=== PATIENT | male | born 1955 | race Caucasian/White ===

== ENCOUNTER 2016-08-13 02:05 | Inpatient (IN) | payer OTHER ==
[2016-08-13] VITALS (7 sets, daily range): BP systolic 138–181; BP diastolic 68–94
[~2016-08-13] VITALS: Ht 172.7 cm; Wt 79.1 kg
[~2016-08-13 02:05] MED LIST: ATIVAN0.5 M1 GT; Ativan PO; CALCITRIOL0.25 MCG PO; CEFTIN500 MG PO; COMPAZINE10 MG PO; Flomax PO; HYDROCODONE BI473 ML PO; LEVOTHYROXINE100 MCG PO; LOSARTAN POTASS25 MG PO; MIRALAX17 GM PO; NORCO 5/3251 TABLET PO; PREDNISONE10 MG PO; Prilosec PO; ROXICODONE5 MG/5 ML PO; VENTOLIN HFA18 GM IH; VITAMIN D31000 UNIT PO; Zofran PO; [UNRECOGNIZED DRUG - REMARK]; [UNRECOGNIZED DRUG - REMARK]; [UNRECOGNIZED DRUG - REMARK]
[2016-08-13 02:38] LABS: EOSINOPHIL (%) 0.5 % (0-5); EOSINOPHIL COUNT 0.1 K/uL (0-0.3); HEMATOCRIT 38.3 % (38.0-50.0); IMMATURE GRANULOCYTE (%) 0.5 % (0.0-0.7); IMMATURE GRANULOCYTE COUNT 0.1 K/uL; INSTRUMENT ABS NEUTROPHIL CT 7.5 K/uL; LYMPHOCYTE COUNT 1.1 K/uL (1.0-2.8); MCH 29.7 PG (29.0-34.0); MCHC 33.7 G/DL (30.0-36.0); MCV 88.2 FL (86-99); MEAN PLAT.VOLUME 9.2 uM^3 (9.0-12.4); MONOCYTE (%) 6.5 % (3-12); MONOCYTE COUNT 0.6 K/uL (0-0.8); NEUTROPHIL (%) 80.2 % (45-76); NEUTROPHIL COUNT 7.5 K/uL (1.8-6.4); PLATELET COUNT 400 K/uL (156-360); RBC DIS.WIDTH-CV 13.4 % (11.8-14.6); RBC DIS.WIDTH-SD 43.7 % (39-53); RED BLOOD COUNT 4.34 M/uL (4.00-5.50); WHITE BLOOD COUNT 9.4 K/uL (4.1-10.2)
[2016-08-13 02:47] LABS: INTER. NORMALIZED RATIO 1.1; PROTHROMBIN TIME 11.5 (9.2-11.2); PTT 24.3 (25-32)
[2016-08-13 02:49] LABS: CHLORIDE 106 mEq/L (99-109); POTASSIUM 3.8 mEq/L (3.7-5.4); SODIUM 138 mEq/L (136-147)
[2016-08-13 02:51] LABS: GLUCOSE 138 mg/dL (70-99)
[2016-08-13 02:52] LABS: ANION GAP 11 MEQ/L (2-14)
[2016-08-13 02:55] LABS: GFR ESTIMATE (CALCULATED) 55 mL/min/
[2016-08-13 02:56] LABS: UREA NITROGEN (BUN) 22 mg/dL (9-23)
[2016-08-13 03:00] LABS: TROP-I INTERPRETATION NEGATIVE; TROPONIN-I < 0.01 ng/mL (0.0-0.30)
[2016-08-13 03:59] LABS: HDL CHOLESTEROL 44 MG/DL (Desirable>=40); LDL CHOLESTEROL 94 mg/dL (Desirable<100); NON-HDL CHOLESTEROL 111 mg/dL (Desirable<160); TOTAL CHOLESTEROL 155 mg/dL (Desirable<200); TRIGLYCERIDES 83 MG/DL (Normal: <150)
[2016-08-13] MEDS ORDERED: CLARITIN10 MG PO (06:27)
[2016-08-13] MEDS ORDERED: ADVAIR 250/501 DISK IH (06:28)
[2016-08-13 07:13] LABS: Estimated Average Glucose 126 mg/dL (70-123)
[2016-08-13 07:52] LABS: ADD MIUA? NO; BILIRUBIN NEGATIVE; BLOOD NEGATIVE; COLOR COLORLESS ((YELLOW)); GLUCOSE (STRIP) NEGATIVE; KETONES NEGATIVE; LEUKOCYTES NEGATIVE; NITRITE NEGATIVE; PROTEIN (STRIP) NEGATIVE; SPECIFIC GRAVITY 1.008 (1.000-1.030); UCUL ADDED? NO; UROBILINOGEN 0.2 MG/DL (0.2-1.0)
[2016-08-13] MEDS ORDERED: SF56 GM DT (08:32)
[2016-08-13] MEDS ORDERED: FLONASE16 G1 BOTH NARES (08:33)
[2016-08-13 10:31] LABS: METH RESISTANT S AUREUS PCR NEGATIVE (NEGATIVE)
[2016-08-13 10:49] LABS: PROBE CHECK PASS; SPECIMEN PROCESSING CONTROL PASS
[2016-08-13 13:59] LABS: TROP-I INTERPRETATION NEGATIVE; TROPONIN-I < 0.01 ng/mL (0.0-0.30)
[2016-08-13 19:12] LABS: TROP-I INTERPRETATION NEGATIVE; TROPONIN-I < 0.01 ng/mL (0.0-0.30)
[2016-08-14 01:23] LABS: TROP-I INTERPRETATION NEGATIVE; TROPONIN-I < 0.01 ng/mL (0.0-0.30)
[2016-08-14 03:57] VITALS: BP 137/89
[2016-08-14 06:23] LABS: EOSINOPHIL (%) 0.1 % (0-5); HEMATOCRIT 41.2 % (38.0-50.0); IMMATURE GRANULOCYTE (%) 0.6 % (0.0-0.7); IMMATURE GRANULOCYTE COUNT 0.1 K/uL; LYMPHOCYTE COUNT 0.8 K/uL (1.0-2.8); MCH 30.4 PG (29.0-34.0); MCHC 34.5 G/DL (30.0-36.0); MCV 88.2 FL (86-99); MEAN PLAT.VOLUME 9.4 uM^3 (9.0-12.4); MONOCYTE (%) 4.1 % (3-12); MONOCYTE COUNT 0.6 K/uL (0-0.8); NEUTROPHIL (%) 90.3 % (45-76); PLATELET COUNT 414 K/uL (156-360); RBC DIS.WIDTH-CV 13.6 % (11.8-14.6); RED BLOOD COUNT 4.67 M/uL (4.00-5.50); WHITE BLOOD COUNT 15.5 K/uL (4.1-10.2)
[2016-08-14 06:43] LABS: ALKALINE PHOSPHATASE 60 IU/L (3-129); ANION GAP 10 MEQ/L (2-14); CHLORIDE 94 MEQ/L (99-109); DIRECT BILIRUBIN 0.2 mg/dL (0.0-0.3); GFR ESTIMATE (CALCULATED) > 59 mL/min/; GLUCOSE 116 mg/dL (70-99); POTASSIUM 4.2 MEQ/L (3.7-5.4); SAMPLE HEMOLYSIS CHECK 0; SAMPLE ICTERIC CHECK 0; SAMPLE LIPEMIA CHECK 0; TOTAL BILIRUBIN 0.8 MG/DL (0.0-1.0); UREA NITROGEN (BUN) 22 mg/dL (9-23)
[2016-08-14 06:46] LABS: SODIUM 129 MEQ/L (136-147)
[2016-08-14 07:41] VITALS: BP 125/78
[2016-08-14 11:27] LABS: POINT-OF-CARE METER ID UU14174225
[2016-08-14 12:05] VITALS: BP 127/74
[2016-08-14 15:22] LABS: HEMATOCRIT 40.9 % (38.0-50.0); MCH 30.7 PG (29.0-34.0); MCHC 34.7 G/DL (30.0-36.0); MCV 88.5 FL (86-99); MEAN PLAT.VOLUME 9.2 uM^3 (9.0-12.4); PLATELET COUNT 381 K/uL (156-360); RBC DIS.WIDTH-CV 13.7 % (11.8-14.6); RBC DIS.WIDTH-SD 44.1 % (39-53); RED BLOOD COUNT 4.62 M/uL (4.00-5.50); WHITE BLOOD COUNT 14.4 K/uL (4.1-10.2)
[2016-08-14 15:50] LABS: ANION GAP 8 MEQ/L (2-14); CHLORIDE 93 MEQ/L (99-109); GFR ESTIMATE (CALCULATED) > 59 mL/min/; GLUCOSE 108 mg/dL (70-99); POTASSIUM 3.9 MEQ/L (3.7-5.4); SAMPLE HEMOLYSIS CHECK 0; SAMPLE ICTERIC CHECK 0; SAMPLE LIPEMIA CHECK 0; SODIUM 128 MEQ/L (136-147); UREA NITROGEN (BUN) 22 mg/dL (9-23)
[2016-08-14 16:31] VITALS: BP 125/71
[2016-08-14 16:58] LABS: POINT-OF-CARE METER ID UU14174225
[2016-08-14 20:03] VITALS: BP 170/96
[2016-08-14 23:48] VITALS: BP 127/75
[2016-08-15 03:55] VITALS: BP 121/69
[2016-08-15 05:30] LABS: HEMATOCRIT 43.2 % (38.0-50.0); MCH 29.7 PG (29.0-34.0); MCHC 33.8 G/DL (30.0-36.0); MCV 87.8 FL (86-99); MEAN PLAT.VOLUME 9.1 uM^3 (9.0-12.4); PLATELET COUNT 370 K/uL (156-360); RBC DIS.WIDTH-CV 13.4 % (11.8-14.6); RBC DIS.WIDTH-SD 43.3 % (39-53); RED BLOOD COUNT 4.92 M/uL (4.00-5.50); WHITE BLOOD COUNT 13.6 K/uL (4.1-10.2)
[2016-08-15 05:59] LABS: ANION GAP 10 MEQ/L (2-14); CHLORIDE 96 MEQ/L (99-109); GFR ESTIMATE (CALCULATED) > 59 mL/min/; GLUCOSE 99 mg/dL (70-99); POTASSIUM 4.2 MEQ/L (3.7-5.4); SAMPLE HEMOLYSIS CHECK 0; SAMPLE ICTERIC CHECK 0; SAMPLE LIPEMIA CHECK 0; SODIUM 131 MEQ/L (136-147); UREA NITROGEN (BUN) 21 mg/dL (9-23)
[2016-08-15 07:55] VITALS: BP 125/72
[2016-08-15 12:07] VITALS: BP 145/94
[2016-08-15 15:35] VITALS: BP 150/96
[2016-08-15 19:42] VITALS: BP 134/87
[2016-08-15 23:59] VITALS: BP 130/86
[2016-08-16 03:30] VITALS: BP 133/94
[2016-08-16 06:00] LABS: HEMATOCRIT 42.2 % (38.0-50.0); MCH 30.1 PG (29.0-34.0); MCHC 34.4 G/DL (30.0-36.0); MCV 87.6 FL (86-99); MEAN PLAT.VOLUME 9.5 uM^3 (9.0-12.4); PLATELET COUNT 350 K/uL (156-360); RBC DIS.WIDTH-CV 13.6 % (11.8-14.6); RBC DIS.WIDTH-SD 43.6 % (39-53); RED BLOOD COUNT 4.82 M/uL (4.00-5.50)
[2016-08-16 06:28] LABS: ANION GAP 10 MEQ/L (2-14); CHLORIDE 91 MEQ/L (99-109); GFR ESTIMATE (CALCULATED) > 59 mL/min/; GLUCOSE 110 mg/dL (70-99); POTASSIUM 4.3 MEQ/L (3.7-5.4); SAMPLE HEMOLYSIS CHECK 0; SAMPLE ICTERIC CHECK 0; SAMPLE LIPEMIA CHECK 0; SODIUM 127 MEQ/L (136-147); UREA NITROGEN (BUN) 25 mg/dL (9-23)
[2016-08-16 07:47] LABS: POINT-OF-CARE METER ID UU14174225
[2016-08-16 08:00] VITALS: BP 149/97
[2016-08-16 10:14] LABS: URIC ACID 5.8 mg/dL (3.1-9.2)
[2016-08-16 12:56] VITALS: BP 147/86
[2016-08-16 15:55] VITALS: BP 150/91
[2016-08-16 19:34] VITALS: BP 124/71
[2016-08-17] VITALS: BP 153/89
[2016-08-17 03:38] VITALS: BP 164/80
[2016-08-17 06:30] LABS: HEMATOCRIT 45.5 % (38.0-50.0); MCH 30.3 PG (29.0-34.0); MCHC 34.5 G/DL (30.0-36.0); MCV 87.7 FL (86-99); MEAN PLAT.VOLUME 9.9 uM^3 (9.0-12.4); PLATELET COUNT 372 K/uL (156-360); RBC DIS.WIDTH-CV 13.5 % (11.8-14.6); RED BLOOD COUNT 5.19 M/uL (4.00-5.50); WHITE BLOOD COUNT 15.7 K/uL (4.1-10.2)
[2016-08-17 06:58] LABS: ANION GAP 11 MEQ/L (2-14); CHLORIDE 93 MEQ/L (99-109); GFR ESTIMATE (CALCULATED) 55 mL/min/; GLUCOSE 92 mg/dL (70-99); POTASSIUM 4.2 MEQ/L (3.7-5.4); SAMPLE HEMOLYSIS CHECK 0; SAMPLE ICTERIC CHECK 0; SAMPLE LIPEMIA CHECK 0; SODIUM 131 MEQ/L (136-147); UREA NITROGEN (BUN) 25 mg/dL (9-23)
[2016-08-17 07:49] VITALS: BP 111/65
[2016-08-17 11:35] VITALS: BP 101/55
[2016-08-17 13:34] LABS: ANION GAP 11 MEQ/L (2-14); CHLORIDE 95 MEQ/L (99-109); GFR ESTIMATE (CALCULATED) 51 mL/min/; GLUCOSE 125 mg/dL (70-99); POTASSIUM 4.6 MEQ/L (3.7-5.4); SAMPLE HEMOLYSIS CHECK 0; SAMPLE ICTERIC CHECK 0; SAMPLE LIPEMIA CHECK 0; SODIUM 130 MEQ/L (136-147); UREA NITROGEN (BUN) 26 mg/dL (9-23)
[2016-08-17 16:12] VITALS: BP 107/58
[2016-08-17 16:27] VITALS: BP 128/75
[2016-08-17 18:01] LABS: UR CREATININE CONCENTRATION 179.4 MG/DL
[2016-08-18 00:07] VITALS: BP 111/60
[2016-08-18 04:19] VITALS: BP 150/76
[2016-08-18 07:04] LABS: HEMATOCRIT 42.6 % (38.0-50.0); MCH 30.5 PG (29.0-34.0); MCHC 34.3 G/DL (30.0-36.0); MCV 89.1 FL (86-99); MEAN PLAT.VOLUME 9.5 uM^3 (9.0-12.4); PLATELET COUNT 333 K/uL (156-360); RBC DIS.WIDTH-SD 45.4 % (39-53); RED BLOOD COUNT 4.78 M/uL (4.00-5.50); WHITE BLOOD COUNT 10.5 K/uL (4.1-10.2)
[2016-08-18 07:30] LABS: ANION GAP 7 MEQ/L (2-14); CHLORIDE 102 MEQ/L (99-109); GFR ESTIMATE (CALCULATED) > 59 mL/min/; GLUCOSE 110 mg/dL (70-99); POTASSIUM 4.7 MEQ/L (3.7-5.4); SAMPLE HEMOLYSIS CHECK 0; SAMPLE ICTERIC CHECK 0; SAMPLE LIPEMIA CHECK 0; SODIUM 136 MEQ/L (136-147); UREA NITROGEN (BUN) 22 mg/dL (9-23)
[2016-08-18 08:24] LABS: ANION GAP 8 MEQ/L (2-14); CHLORIDE 102 MEQ/L (99-109); GFR ESTIMATE (CALCULATED) > 59 mL/min/; GLUCOSE 111 mg/dL (70-99); POTASSIUM 4.6 MEQ/L (3.7-5.4); SAMPLE HEMOLYSIS CHECK 0; SAMPLE ICTERIC CHECK 0; SAMPLE LIPEMIA CHECK 0; SODIUM 137 MEQ/L (136-147); UREA NITROGEN (BUN) 22 mg/dL (9-23); URIC ACID 5.8 mg/dL (3.1-9.2)
[2016-08-18 08:42] VITALS: BP 154/93
[2016-08-18] MEDS ORDERED: ATORVASTATIN CA40 MG PO (09:54)
[2016-08-18] MEDS ORDERED: ASPIR-LOW81 MG PO (09:54)
== END 2016-08-18 14:00 | DRG 65 ==
LOC: EME → EDBD 02:05 → 5SOUTH 06:10 → EDOF 06:10 → 4WEST 08:51 → 5SOUTH 19:49
PROVIDERS: Emergency Medicine; Hospitalist; Internal Medicine Nephrology
DX: I63.9 Cerebral infarction, unspecified (principal); J32.0 Chronic maxillary sinusitis; R00.1 Bradycardia, unspecified; I12.9 Hypertensive chronic kidney disease with stage 1 through stage 4 chronic kidney disease, or unspecified chronic kidney disease; E87.1 Hypo-osmolality and hyponatremia; I07.1 Rheumatic tricuspid insufficiency; J45.20 Mild intermittent asthma, uncomplicated; N18.3 Chronic kidney disease, stage 3 (moderate); E03.9 Hypothyroidism, unspecified; R42 Dizziness and giddiness; R11.2 Nausea with vomiting, unspecified; H53.2 Diplopia; J32.2 Chronic ethmoidal sinusitis; R13.10 Dysphagia, unspecified; E21.3 Hyperparathyroidism, unspecified; K21.9 Gastro-esophageal reflux disease without esophagitis; Z85.819 Personal history of malignant neoplasm of unspecified site of lip, oral cavity, and pharynx; Z86.73 Personal history of transient ischemic attack (TIA), and cerebral infarction without residual deficits
CPT/HCPCS: 70450; 70551; 71010; 74230; 80048; 80048 91; 80061; 80069; 80076; 81003; 82533 91; 82570; 82948; 83036; 83880; 83930; 83935; 84300; 84443; 84484; 84550; 85025; 85027; 85610; 85730; 87641; 92610 GN; 92611 GN; 93005; 93306; 94640; 94640 76; 99202; 99281; 99284; J1650; J2060; J2405; J7030; Q0161; Q0169

== ENCOUNTER 2016-08-18 12:40 | Inpatient (IN) | payer OTHER ==
[~2016-08-18] VITALS: Ht 172.7 cm; Wt 79.0 kg
[~2016-08-18 12:40] MED LIST changes: +ADVAIR 250/501 DISK IH; +ASPIR-LOW81 MG PO; +ATORVASTATIN CA40 MG PO; +CLARITIN10 MG PO; +FLONASE16 G1 BOTH NARES; +SF56 GM DT
[2016-08-18 14:00] VITALS: BP 153/85
[2016-08-19] VITALS: BP 145/92
[2016-08-19 05:09] VITALS: BP 153/91
[2016-08-19 15:55] VITALS: BP 176/96
[2016-08-19 18:00] VITALS: BP 133/85
[2016-08-20 06:01] VITALS: BP 142/86
[2016-08-20 13:21] VITALS: BP 129/79
[2016-08-20 15:35] VITALS: BP 108/67
[2016-08-21 05:15] VITALS: BP 160/86
[2016-08-21 16:16] VITALS: BP 139/80
[2016-08-22 05:11] VITALS: BP 158/82
[2016-08-22 07:40] LABS: ANION GAP 8 MEQ/L (2-14); CHLORIDE 100 MEQ/L (99-109); GFR ESTIMATE (CALCULATED) > 59 mL/min/; GLUCOSE 97 mg/dL (70-99); POTASSIUM 4.7 MEQ/L (3.7-5.4); SAMPLE HEMOLYSIS CHECK 0; SAMPLE ICTERIC CHECK 0; SAMPLE LIPEMIA CHECK 0; SODIUM 137 MEQ/L (136-147); UREA NITROGEN (BUN) 22 mg/dL (9-23)
[2016-08-22 14:29] VITALS: BP 140/85
[2016-08-22 14:32] VITALS: BP 128/70
[2016-08-22 16:15] VITALS: BP 122/77
[2016-08-23 05:22] VITALS: BP 120/80
[2016-08-23 15:47] VITALS: BP 150/72
[2016-08-23 17:05] VITALS: BP 138/80
[2016-08-23 17:18] LABS: POINT-OF-CARE METER ID UU13113720
[2016-08-24 05:36] VITALS: BP 131/76
[2016-08-24 06:05] LABS: MCH 30.2 PG (29.0-34.0); MCHC 33.4 G/DL (30.0-36.0); MCV 90.5 FL (86-99); MEAN PLAT.VOLUME 9.1 uM^3 (9.0-12.4); PLATELET COUNT 321 K/uL (156-360); RBC DIS.WIDTH-CV 13.8 % (11.8-14.6); RED BLOOD COUNT 4.86 M/uL (4.00-5.50); WHITE BLOOD COUNT 11.2 K/uL (4.1-10.2)
[2016-08-24 07:04] LABS: ALKALINE PHOSPHATASE 67 IU/L (3-129); ANION GAP 9 MEQ/L (2-14); CHLORIDE 102 MEQ/L (99-109); GFR ESTIMATE (CALCULATED) 55 mL/min/; GLUCOSE 100 mg/dL (70-99); POTASSIUM 4.6 MEQ/L (3.7-5.4); SAMPLE HEMOLYSIS CHECK 0; SAMPLE ICTERIC CHECK 0; SAMPLE LIPEMIA CHECK 0; SODIUM 138 MEQ/L (136-147); TOTAL BILIRUBIN 0.4 MG/DL (0.0-1.0); UREA NITROGEN (BUN) 27 mg/dL (9-23)
[2016-08-24 15:19] VITALS: BP 132/88
[2016-08-24 19:40] LABS: ADD MIUA? NO; BILIRUBIN NEGATIVE; BLOOD NEGATIVE; COLOR YELLOW ((YELLOW)); GLUCOSE (STRIP) NEGATIVE; KETONES NEGATIVE; LEUKOCYTES NEGATIVE; NITRITE NEGATIVE; PROTEIN (STRIP) NEGATIVE; SPECIFIC GRAVITY 1.015 (1.000-1.030); UROBILINOGEN 0.2 MG/DL (0.2-1.0)
[2016-08-25 05:00] VITALS: BP 155/81
[2016-08-25 08:20] VITALS: BP 92/52
[2016-08-25 08:25] VITALS: BP 87/54
[2016-08-25 08:40] VITALS: BP 129/68
[2016-08-25 09:24] LABS: CHLORIDE 102 mEq/L (99-109); POTASSIUM 4.9 mEq/L (3.7-5.4); SODIUM 137 mEq/L (136-147)
[2016-08-25 09:26] LABS: GLUCOSE 143 mg/dL (70-99)
[2016-08-25 09:27] LABS: ANION GAP 11 MEQ/L (2-14)
[2016-08-25 09:30] LABS: GFR ESTIMATE (CALCULATED) 55 mL/min/
[2016-08-25 09:31] LABS: UREA NITROGEN (BUN) 32 mg/dL (9-23)
[2016-08-25 09:36] LABS: TROP-I INTERPRETATION NEGATIVE; TROPONIN-I < 0.01 ng/mL (0.0-0.30)
[2016-08-25 10:14] LABS: BASOPHIL COUNT 0.1 K/uL (0-0.1); EOSINOPHIL (%) 0.8 % (0-5); EOSINOPHIL COUNT 0.2 K/uL (0-0.3); HEMATOCRIT 44.1 % (38.0-50.0); IMMATURE GRANULOCYTE (%) 0.6 % (0.0-0.7); IMMATURE GRANULOCYTE COUNT 0.2 K/uL; INSTRUMENT ABS NEUTROPHIL CT 23.7 K/uL; LYMPHOCYTE COUNT 0.7 K/uL (1.0-2.8); MCH 29.6 PG (29.0-34.0); MCHC 33.1 G/DL (30.0-36.0); MCV 89.3 FL (86-99); MEAN PLAT.VOLUME 9.8 uM^3 (9.0-12.4); MONOCYTE COUNT 1.3 K/uL (0-0.8); NEUTROPHIL (%) 90.4 % (45-76); NEUTROPHIL COUNT 23.7 K/uL (1.8-6.4); PLATELET COUNT 368 K/uL (156-360); RBC DIS.WIDTH-SD 45.5 % (39-53); RED BLOOD COUNT 4.94 M/uL (4.00-5.50); WHITE BLOOD COUNT 26.3 K/uL (4.1-10.2)
[2016-08-25 12:20] VITALS: BP 97/57
[2016-08-25 12:34] VITALS: BP 97/57
[2016-08-25 13:35] LABS: ALKALINE PHOSPHATASE 61 IU/L (3-129); ANION GAP 7 MEQ/L (2-14); CHLORIDE 101 MEQ/L (99-109); GFR ESTIMATE (CALCULATED) 51 mL/min/; GLUCOSE 195 mg/dL (70-99); POTASSIUM 4.4 MEQ/L (3.7-5.4); SAMPLE HEMOLYSIS CHECK 0; SAMPLE ICTERIC CHECK 0; SAMPLE LIPEMIA CHECK 0; SODIUM 136 MEQ/L (136-147); TOTAL BILIRUBIN 0.4 MG/DL (0.0-1.0); UREA NITROGEN (BUN) 30 mg/dL (9-23)
== END 2016-08-25 14:52 | DRG 56 ==
LOC: 3WEST 12:40
PROVIDERS: Hospitalist; Physical Medicine & Rehabilitation Pain Medicine; Psychiatry & Neurology Neurology
PROC: F07M0ZZ Range of Motion and Joint Mobility Treatment of Musculoskeletal System - Whole Body (ICD-10-PCS; principal; 2016-08-18)
DX: I69.393 Ataxia following cerebral infarction (principal); I69.351 Hemiplegia and hemiparesis following cerebral infarction affecting right dominant side; I69.398 Other sequelae of cerebral infarction; H53.2 Diplopia; R13.10 Dysphagia, unspecified; A41.9 Sepsis, unspecified organism; R65.20 Severe sepsis without septic shock; J18.9 Pneumonia, unspecified organism; Y95 Nosocomial condition; I95.9 Hypotension, unspecified; N17.9 Acute kidney failure, unspecified; R39.15 Urgency of urination; E87.1 Hypo-osmolality and hyponatremia; I12.9 Hypertensive chronic kidney disease with stage 1 through stage 4 chronic kidney disease, or unspecified chronic kidney disease; N18.3 Chronic kidney disease, stage 3 (moderate); J45.909 Unspecified asthma, uncomplicated; E55.9 Vitamin D deficiency, unspecified; E03.9 Hypothyroidism, unspecified; R06.6 Hiccough; Z85.819 Personal history of malignant neoplasm of unspecified site of lip, oral cavity, and pharynx; Z87.891 Personal history of nicotine dependence; Z92.3 Personal history of irradiation
CPT/HCPCS: 70450; 71010; 80048; 80053; 81003; 82948; 83605; 84484; 85025; 85027; 87040; 87086; 93005; 94640; 94640 76; 97110 GO; 97530 GP; J0456; J1650; J3370; J7030; Q0161

== ENCOUNTER 2016-08-25 12:48 | Inpatient (IN) | payer OTHER ==
[~2016-08-25] VITALS: Ht 172.7 cm; Wt 81.2 kg
[2016-08-25 15:10] VITALS: BP 121/66
[2016-08-25 16:39] LABS: TROP-I INTERPRETATION NEGATIVE; TROPONIN-I 0.01 ng/mL (0.0-0.30)
[2016-08-25 17:11] LABS: ADD MIUA? NO; BILIRUBIN NEGATIVE; BLOOD NEGATIVE; COLOR STRAW ((YELLOW)); GLUCOSE (STRIP) NEGATIVE; KETONES NEGATIVE; LEUKOCYTES NEGATIVE; NITRITE NEGATIVE; PROTEIN (STRIP) NEGATIVE; SPECIFIC GRAVITY 1.006 (1.000-1.030); UCUL ADDED? NO; UROBILINOGEN 0.2 MG/DL (0.2-1.0)
[2016-08-25 20:34] VITALS: BP 128/61
[2016-08-25 21:19] LABS: TROP-I INTERPRETATION NEGATIVE; TROPONIN-I 0.01 ng/mL (0.0-0.30)
[2016-08-25 23:42] VITALS: BP 156/83
[2016-08-26] VITALS (7 sets, daily range): BP systolic 143–170; BP diastolic 77–100
[2016-08-26 05:37] LABS: BASOPHIL COUNT 0.1 K/uL (0-0.1); EOSINOPHIL (%) 3.9 % (0-5); EOSINOPHIL COUNT 0.6 K/uL (0-0.3); HEMATOCRIT 36.8 % (38.0-50.0); IMMATURE GRANULOCYTE (%) 0.7 % (0.0-0.7); IMMATURE GRANULOCYTE COUNT 0.1 K/uL; INSTRUMENT ABS NEUTROPHIL CT 13.1 K/uL; MCH 29.6 PG (29.0-34.0); MCHC 32.6 G/DL (30.0-36.0); MCV 90.9 FL (86-99); MEAN PLAT.VOLUME 9.5 uM^3 (9.0-12.4); MONOCYTE (%) 4.9 % (3-12); MONOCYTE COUNT 0.8 K/uL (0-0.8); NEUTROPHIL COUNT 13.1 K/uL (1.8-6.4); PLATELET COUNT 285 K/uL (156-360); RBC DIS.WIDTH-CV 14.1 % (11.8-14.6); RBC DIS.WIDTH-SD 47.2 % (39-53); RED BLOOD COUNT 4.05 M/uL (4.00-5.50); WHITE BLOOD COUNT 15.7 K/uL (4.1-10.2)
[2016-08-26 06:01] LABS: ALKALINE PHOSPHATASE 58 IU/L (3-129); ANION GAP 9 MEQ/L (2-14); CHLORIDE 106 MEQ/L (99-109); GFR ESTIMATE (CALCULATED) > 59 mL/min/; POTASSIUM 4.2 MEQ/L (3.7-5.4); SAMPLE HEMOLYSIS CHECK 0; SAMPLE ICTERIC CHECK 0; SAMPLE LIPEMIA CHECK 0; SODIUM 139 MEQ/L (136-147); UREA NITROGEN (BUN) 20 mg/dL (9-23)
[2016-08-26 06:03] LABS: GLUCOSE 105 mg/dL (70-99); TOTAL BILIRUBIN 0.5 MG/DL (0.0-1.0)
[2016-08-26 08:16] LABS: INTERNAL CONTROL VALID? YES
[2016-08-27 03:32] VITALS: BP 130/70
[2016-08-27 06:52] LABS: HEMATOCRIT 39.3 % (38.0-50.0); MCH 29.7 PG (29.0-34.0); MCHC 32.8 G/DL (30.0-36.0); MCV 90.3 FL (86-99); MEAN PLAT.VOLUME 9.3 uM^3 (9.0-12.4); PLATELET COUNT 295 K/uL (156-360); RBC DIS.WIDTH-SD 46.3 % (39-53); RED BLOOD COUNT 4.35 M/uL (4.00-5.50); WHITE BLOOD COUNT 10.2 K/uL (4.1-10.2)
[2016-08-27 07:22] LABS: ANION GAP 9 MEQ/L (2-14); CHLORIDE 103 MEQ/L (99-109); GFR ESTIMATE (CALCULATED) 55 mL/min/; GLUCOSE 91 mg/dL (70-99); POTASSIUM 4.5 MEQ/L (3.7-5.4); SAMPLE HEMOLYSIS CHECK 0; SAMPLE ICTERIC CHECK 0; SAMPLE LIPEMIA CHECK 0; SODIUM 139 MEQ/L (136-147); UREA NITROGEN (BUN) 19 mg/dL (9-23)
[2016-08-27 08:10] VITALS: BP 133/81
[2016-08-27 12:23] VITALS: BP 126/78
[2016-08-27 18:10] VITALS: BP 114/82
[2016-08-27 20:10] VITALS: BP 135/82
[2016-08-27 23:39] VITALS: BP 127/75
[2016-08-28 03:27] VITALS: BP 127/69
[2016-08-28 06:33] LABS: ANION GAP 12 MEQ/L (2-14); CHLORIDE 102 MEQ/L (99-109); GFR ESTIMATE (CALCULATED) 44 mL/min/; GLUCOSE 97 mg/dL (70-99); POTASSIUM 4.6 MEQ/L (3.7-5.4); SAMPLE HEMOLYSIS CHECK 0; SAMPLE ICTERIC CHECK 0; SAMPLE LIPEMIA CHECK 0; SODIUM 138 MEQ/L (136-147); UREA NITROGEN (BUN) 21 mg/dL (9-23)
[2016-08-28 07:53] VITALS: BP 142/97
[2016-08-28] MEDS ORDERED: AUGMENTIN875 MG PO (08:21)
[2016-08-28 11:34] VITALS: BP 142/86
[2016-08-28] MEDS ORDERED: FAMOTIDINE20 MG PO (14:28)
[2016-08-28] MEDS ORDERED: HEPARIN SO5000 UNITS SC (14:29)
[2016-08-28] MEDS ORDERED: ZOSYN 3.373.375 GM/5 IV (14:30)
== END 2016-08-28 13:15 | DRG 871 ==
LOC: 4EAST 12:48 → 5SOUTH 14:54 → 4EAST 08-26 10:49 → 5SOUTH 08-26 20:37
PROVIDERS: Hospitalist
DX: A41.9 Sepsis, unspecified organism (principal); N17.9 Acute kidney failure, unspecified; J18.9 Pneumonia, unspecified organism; C73 Malignant neoplasm of thyroid gland; I95.9 Hypotension, unspecified; C14.0 Malignant neoplasm of pharynx, unspecified; N18.3 Chronic kidney disease, stage 3 (moderate); E03.9 Hypothyroidism, unspecified; R65.20 Severe sepsis without septic shock; Y95 Nosocomial condition; E78.5 Hyperlipidemia, unspecified; I12.9 Hypertensive chronic kidney disease with stage 1 through stage 4 chronic kidney disease, or unspecified chronic kidney disease; I69.393 Ataxia following cerebral infarction; J45.20 Mild intermittent asthma, uncomplicated; J98.11 Atelectasis; K21.9 Gastro-esophageal reflux disease without esophagitis; Z87.891 Personal history of nicotine dependence; Z79.82 Long term (current) use of aspirin; Z79.899 Other long term (current) drug therapy; L01.00 Impetigo, unspecified; R00.0 Tachycardia, unspecified; R42 Dizziness and giddiness; R26.2 Difficulty in walking, not elsewhere classified
CPT/HCPCS: 71010; 80048; 80053; 81003; 84484; 85025; 85027; 87040; 87070; 87205; 87449; 92526 GN; 92610 GN; 94640 76; 97530 GO; J1644; J2543; J7030; J7050; S0028

== ENCOUNTER 2016-08-28 13:21 | Inpatient (IN) | payer OTHER ==
[~2016-08-28] VITALS: Ht 172.7 cm; Wt 80.4 kg
[~2016-08-28 13:21] MED LIST changes: +AUGMENTIN875 MG PO
[2016-08-28 13:37] VITALS: BP 142/93
[2016-08-28] MEDS ORDERED: FAMOTIDINE20 MG PO (14:28)
[2016-08-28] MEDS ORDERED: HEPARIN SO5000 UNITS SC (14:29)
[2016-08-28] MEDS ORDERED: ZOSYN 3.373.375 GM/5 IV (14:30)
[2016-08-28 15:00] VITALS: BP 131/87
[2016-08-29 04:28] VITALS: BP 124/70
[2016-08-29 06:50] LABS: HEMATOCRIT 39.2 % (38.0-50.0); MCH 30.6 PG (29.0-34.0); MCHC 33.7 G/DL (30.0-36.0); MEAN PLAT.VOLUME 9.3 uM^3 (9.0-12.4); PLATELET COUNT 329 K/uL (156-360); RBC DIS.WIDTH-CV 14.3 % (11.8-14.6); RBC DIS.WIDTH-SD 47.9 % (39-53); RED BLOOD COUNT 4.31 M/uL (4.00-5.50); WHITE BLOOD COUNT 8.3 K/uL (4.1-10.2)
[2016-08-29 07:16] LABS: ALKALINE PHOSPHATASE 55 IU/L (3-129); ANION GAP 8 MEQ/L (2-14); CHLORIDE 101 MEQ/L (99-109); GFR ESTIMATE (CALCULATED) 47 mL/min/; GLUCOSE 97 mg/dL (70-99); POTASSIUM 4.8 MEQ/L (3.7-5.4); SAMPLE HEMOLYSIS CHECK 0; SAMPLE ICTERIC CHECK 0; SAMPLE LIPEMIA CHECK 0; SODIUM 139 MEQ/L (136-147); TOTAL BILIRUBIN 0.3 MG/DL (0.0-1.0); UREA NITROGEN (BUN) 21 mg/dL (9-23)
[2016-08-29 14:45] VITALS: BP 124/84
[2016-08-29 15:11] VITALS: BP 158/94
[2016-08-29 15:39] VITALS: BP 137/94
[2016-08-30 05:47] VITALS: BP 133/86
[2016-08-30 15:01] VITALS: BP 139/93
[2016-08-31 04:39] VITALS: BP 142/85
[2016-08-31 15:01] VITALS: BP 121/80
[2016-09-01 05:43] VITALS: BP 152/84
[2016-09-01 15:32] VITALS: BP 163/89
[2016-09-02 04:55] VITALS: BP 142/83
[2016-09-02 15:15] VITALS: BP 135/87
[2016-09-03 04:59] VITALS: BP 135/87
[2016-09-03] MEDS ORDERED: FLONASE16 G1 BOTH NARES (11:51)
[2016-09-03] MEDS ORDERED: ADVAIR 250/501 DISK IH (11:51)
[2016-09-03] MEDS ORDERED: ANTIVERT12.5 MG PO (11:51)
[2016-09-03] MEDS ORDERED: VENTOLIN HFA18 GM IH (11:51)
[2016-09-03] MEDS ORDERED: ASPIR-LOW81 MG PO (11:51)
[2016-09-03] MEDS ORDERED: ATORVASTATIN CA40 MG PO (11:51)
== END 2016-09-03 14:29 | DRG 56 ==
LOC: 3WEST 13:21
PROVIDERS: Physical Medicine & Rehabilitation Pain Medicine
PROC: F07M0ZZ Range of Motion and Joint Mobility Treatment of Musculoskeletal System - Whole Body (ICD-10-PCS; principal; 2016-08-28)
DX: I69.351 Hemiplegia and hemiparesis following cerebral infarction affecting right dominant side (principal); A41.9 Sepsis, unspecified organism; J18.9 Pneumonia, unspecified organism; J98.11 Atelectasis; E03.9 Hypothyroidism, unspecified; J45.909 Unspecified asthma, uncomplicated; E55.9 Vitamin D deficiency, unspecified; R06.6 Hiccough; I12.9 Hypertensive chronic kidney disease with stage 1 through stage 4 chronic kidney disease, or unspecified chronic kidney disease; N18.3 Chronic kidney disease, stage 3 (moderate); R39.15 Urgency of urination; R13.10 Dysphagia, unspecified; I69.398 Other sequelae of cerebral infarction; I69.391 Dysphagia following cerebral infarction; Z85.810 Personal history of malignant neoplasm of tongue; Z87.891 Personal history of nicotine dependence
CPT/HCPCS: 80053; 85027; 94640; 94640 76; 97110 GO; 97530 GP; 99202; J1650